=== PATIENT | male | born 1955 ===

== ENCOUNTER 2024-03-15 08:03 | Outpatient (CLI) | payer OTHER ==
[~2024-03-15 08:03] MED LIST: GABAPENTIN400 MG PO
== END 2024-03-15 08:10 | disposition home or self-care (01) ==
LOC: TOM 08:03
PROVIDERS: ATTEND Internal Medicine Cardiovascular Disease
DX: R07.2 Precordial pain (principal); I26.99 Other pulmonary embolism without acute cor pulmonale
CPT/HCPCS: 71275; Q9965